=== PATIENT | female | born 1955 | race Caucasian/White ===

== ENCOUNTER 2024-10-18 20:00 | Inpatient (IN) | payer MEDICARE, OTHER ==
[~2024-10-18] VITALS: Ht 167.6 cm; Wt 105.2 kg
[2024-10-18] MEDS ORDERED: HALOPERIDOL LACTATE 5 MG/1 ML VIAL ONE (20:21)
[2024-10-18] MEDS ORDERED: ONDANSETRON ODT 4 MG TAB.RAPDIS ONE (20:21)
[2024-10-18] MEDS ORDERED: HYDROCODONE/APAP 10-325 MG TABLET ONE (20:22)
[2024-10-18] MEDS: ONDANSETRON ODT 4 MG TAB.RAPDIS SL ONE (20:30)
[2024-10-18] MEDS: HYDROCODONE/APAP 10-325 MG TABLET PO ONE (20:30)
[2024-10-18] MEDS: HALOPERIDOL LACTATE 5 MG/1 ML VIAL IM ONE (20:30)
[2024-10-18 20:51] LABS: PLATELET COUNT (AUTO) 171 K/uL (179-408); RED BLOOD CELL COUNT(AUTO) 3.62 MIL/uL (3.63-4.92); RED CELL DISTRIBUTION WIDTH 17.9 % (12.3-17.7); WHITE BLOOD COUNT (AUTO) 5.0 K/uL (3.8-11.8)
[2024-10-18 20:59] LABS: CREATININE 0.7 mg/dL (0.6-1.3); SODIUM SERUM 140 mmol/L (136-145); UREA NITROGEN, BLOOD 25 mg/dL (7-18)
[2024-10-18 21:04] LABS: ETHANOL < 3 MG/DL (0-10)
[2024-10-18 21:05] LABS: ASPARTATE AMINOTRANSFERASE 85 U/L (15-37); TOTAL PROTEIN, SERUM 8.6 g/dL (6.4-8.2)
[2024-10-18 22:16] LABS: *BILIRUBIN,URIN NEGATIVE (NEGATIVE); *CLARITY,URINE CLEAR (CLEAR); *COLOR,URINE YELLOW (YELLOW); *KETONES,URINE TRACE (NEGATIVE); *PROTEIN,URINE NEGATIVE (NEGATIVE); *UROBILINOGEN,URINE 0.2 E.U./dl (NORMAL); LEUKOCYTE ESTERASE ,URINE NEGATIVE (NEGATIVE); NITRITE, URINE NEGATIVE (NEGATIVE); UGLUCOSE NEGATIVE (NEGATIVE)
[2024-10-18 22:17] LABS: *BLOOD, URINE TRACE (NEGATIVE)
[2024-10-18 22:25] LABS: *AMPHETAMINE, URINE NEGATIVE (NEGATIVE); *BARBITURATE, URINE NEGATIVE (NEGATIVE); *BENZODIAZEPINE, URINE POSITIVE (NEGATIVE); *CANNABINOID, URINE NEGATIVE (NEGATIVE); *COCCAINE, URINE NEGATIVE (NEGATIVE); *OPIATE, URINE POSITIVE (NEGATIVE); *PHENCYCLIDINE SCREEN,URINE NEGATIVE (NEGATIVE); FENTANYL, URINE NEGATIVE (NEGATIVE)
[2024-10-18 22:43] LABS: SQUAMOUS EPITHELIAL CELL,UR FEW /HPF (NONE SEEN)
[2024-10-19] MEDS ORDERED: PROG100C8 PO (00:06)
[2024-10-19] MEDS ORDERED: PRAZ2CAP2 PO (00:06)
[2024-10-19] MEDS ORDERED: LOSA50TA39 PO (00:06)
[2024-10-19] MEDS ORDERED: DEUT12TA PO (00:06)
[2024-10-19] MEDS ORDERED: ONDA-104 PO (00:06)
[2024-10-19] MEDS ORDERED: DIAZ2TAB3 PO (00:06)
[2024-10-19] MEDS ORDERED: BUSP5TAB3 PO (00:06)
[2024-10-19] MEDS ORDERED: OMEP20CA15 PO (00:06)
[2024-10-19] MEDS ORDERED: BUDE10.26 INH (00:06)
[2024-10-19] MEDS ORDERED: LEVO25TA9 PO (00:06)
[2024-10-19] MEDS ORDERED: SERT-438 PO (00:06)
[2024-10-19] MEDS ORDERED: FURO20TA4 PO (00:06)
[2024-10-19] MEDS ORDERED: OXYC10TA49 PO (00:06)
[2024-10-19] MEDS ORDERED: MELA5TAB PO (00:09)
[2024-10-19] MEDS ORDERED: ASPI81TA31 PO (00:09)
[2024-10-19] MEDS ORDERED: MAGNESIUM HYDROXIDE 30 ML LIQUID UDC PO PRN ×2 (00:15→13:30)
[2024-10-19] MEDS ORDERED: QUETIAPINE FUMARATE 100 MG TABLET PO PRN (00:15)
[2024-10-19] MEDS ORDERED: MAG HYDROX/AL HYDROX/SIMETH 30 ML LIQUID UDC PO PRN (00:15)
[2024-10-19] MEDS ORDERED: ZOLPIDEM 5 MG TABLET PO PRN (00:15)
[2024-10-19] MEDS: BLOOD SUGAR DIAGNOSTIC 1 EACH STRIP VI ONE (00:35)
[2024-10-19] MEDS: REMEDY ESSENTIAL ZINC PASTE 113 GM TOP PRN (05:35)
[2024-10-19 08:33] VITALS: BP 129/46; TEMP 98; O2SAT 96
[2024-10-19] MEDS ORDERED: GUAI100S69 PO (08:56)
[2024-10-19] MEDS ORDERED: MAGN400O6 PO (08:56)
[2024-10-19] MEDS ORDERED: MINE133E RC (08:56)
[2024-10-19] MEDS ORDERED: VITA1TAB37 PO (08:56)
[2024-10-19] MEDS ORDERED: CYAN100096 PO (08:56)
[2024-10-19] MEDS ORDERED: POTA-10 PO (08:56)
[2024-10-19] MEDS ORDERED: ACET-2154 PO (08:56)
[2024-10-19] MEDS: ACETAMINOPHEN 325 MG TABLET PO PRN (08:56)
[2024-10-19] MEDS: QUETIAPINE FUMARATE 25 MG TABLET PO PRN ×2 (08:56→13:17)
[2024-10-19] MEDS ORDERED: AUSTEDO 24 MG PO (08:56)
[2024-10-19] MEDS ORDERED: LIDO30AD10 TD (08:56)
[2024-10-19] MEDS ORDERED: DOCU250C15 PO (08:56)
[2024-10-19] MEDS ORDERED: BISA10SU61 RC (08:56)
[2024-10-19] MEDS ORDERED: CRAN500T3 PO (08:56)
[2024-10-19] MEDS ORDERED: CHOL-35 PO (08:56)
[2024-10-19] MEDS ORDERED: QUETIAPINE FUMARATE 25 MG TABLET PO PRN (09:00)
[2024-10-19] MEDS ORDERED: BISACODYL 10 MG SUPP.RECT RC PRN (13:30)
[2024-10-19] MEDS ORDERED: ACETAMINOPHEN 325 MG TABLET-SA PATIENTS-PAIN ONLY PO PRN (13:30)
[2024-10-19] MEDS ORDERED: MINERAL OIL FLEET ENEMA 133 ML BOTTLE RC PRN (13:30)
[2024-10-19] MEDS ORDERED: GUAIFENESIN SUGAR FREE 100 MG/5 ML UDC PO PRN (13:30)
[2024-10-19] MEDS ORDERED: ONDANSETRON HCL 4 MG TABLET PO PRN (13:30)
[2024-10-19] MEDS: OXYCODONE HCL 5 MG TABLET PO PRN (13:35)
[2024-10-19 15:29] VITALS: BP 118/51; TEMP 98; O2SAT 94
[2024-10-19] MEDS ORDERED: Medication Not On Formulary EA (Prazosin Hcl 1 CAP) PO SCH (17:00)
[2024-10-19] MEDS: OXCARBAZEPINE 150 MG TABLET PO SCH (17:06)
[2024-10-19] MEDS: FUROSEMIDE 20 MG TABLET PO SCH (17:06)
[2024-10-19] MEDS: PRAZOSIN HCL 1 MG CAPSULE PO SCH (17:07)
[2024-10-19] MEDS: PANTOPRAZOLE SODIUM 40 MG TABLET.DR PO SCH (17:07)
[2024-10-19 19:53] VITALS: BP 136/54; TEMP 97.9; O2SAT 95
[2024-10-19] MEDS: QUETIAPINE FUMARATE 25 MG TABLET PO SCH (20:51)
[2024-10-19] MEDS: TRAZODONE 50 MG TABLET PO SCH (20:51)
[2024-10-20] MEDS: LEVOTHYROXINE SODIUM 25 MCG TABLET PO SCH (06:52)
[2024-10-20 07:46] LABS: ASPARTATE AMINOTRANSFERASE 70.0 U/L (15-37); GLUCOSE FASTING 89.0 mg/dL (70-115); TOTAL PROTEIN, SERUM 6.9 g/dL (6.4-8.2)
[2024-10-20 08:24] VITALS: BP 109/66; TEMP 98; O2SAT 98
[2024-10-20] MEDS ORDERED: AUSTEDO 24 MG PO SCH (09:00)
[2024-10-20] MEDS ORDERED: Medication Not On Formulary EA (Cranberry Extract (Cranberry) 500 MG) PO SCH (09:00)
[2024-10-20] MEDS ORDERED: PROGESTERONE MICRONIZED PO SCH (09:00)
[2024-10-20] MEDS ORDERED: Medication Not On Formulary EA (Potassium Chloride (K-Dur) 10 MEQ) PO SCH (09:00)
[2024-10-20] MEDS ORDERED: VITAMIN B COMP W C PO SCH (09:00)
[2024-10-20] MEDS: CYANOCOBALAMIN 1,000 MCG TABLET PO SCH (09:31)
[2024-10-20] MEDS: LOSARTAN POTASSIUM 50 MG TABLET PO SCH (09:31)
[2024-10-20] MEDS: CHOLECALCIFEROL 1,000 UNIT TABLET PO SCH (09:32)
[2024-10-20] MEDS: ASPIRIN 81 MG TAB.CHEW PO SCH (09:32)
[2024-10-20] MEDS: LIDOCAINE 5% PATCH TD SCH (09:32)
[2024-10-20] MEDS: DOCUSATE SODIUM 250 MG CAPSULE PO SCH (09:32)
[2024-10-20] MEDS: VITAMIN B COMPLEX 1 TABLET PO SCH (09:32)
[2024-10-20] MEDS: POTASSIUM CHLORIDE 10 MEQ TAB.PRT.SR PO SCH (09:33)
[2024-10-20 16:40] VITALS: BP 102/45; TEMP 97.9; O2SAT 95
[2024-10-20 20:00] VITALS: BP 125/41; TEMP 98.1; O2SAT 95
[2024-10-21 08:49] VITALS: BP 105/54; TEMP 98.4; O2SAT 99
[2024-10-21 17:19] VITALS: BP 143/62; TEMP 98.5; O2SAT 99
[2024-10-21 19:45] VITALS: BP 135/56; TEMP 98.2; O2SAT 94
[2024-10-21] MEDS: TRAZODONE 50 MG TABLET PO SCH (20:41)
[2024-10-22 08:37] VITALS: BP 157/72; TEMP 98; O2SAT 97
[2024-10-22 16:31] VITALS: BP 140/68; TEMP 98; O2SAT 97
[2024-10-22 20:01] VITALS: BP 142/66; TEMP 98.1; O2SAT 96
[2024-10-23] MEDS: ZOLPIDEM 5 MG TABLET PO PRN (01:40)
[2024-10-23 08:56] VITALS: BP 105/41; TEMP 98.6; O2SAT 95
[2024-10-23 16:17] VITALS: BP 118/50; TEMP 98.2; O2SAT 97
[2024-10-23 20:02] VITALS: BP 116/52; TEMP 98.1; O2SAT 96
[2024-10-23] MEDS: QUETIAPINE FUMARATE 25 MG TABLET PO SCH (21:54)
[2024-10-23] MEDS: TRAZODONE 50 MG TABLET PO SCH (21:54)
[2024-10-24 07:30] VITALS: BP 115/62; TEMP 98; O2SAT 98
[2024-10-24] MEDS: OXCARBAZEPINE 150 MG TABLET PO SCH (13:16)
[2024-10-24 15:49] VITALS: BP 98/46; TEMP 98; O2SAT 96
[2024-10-24 19:43] VITALS: BP 126/66; TEMP 98.1; O2SAT 96
[2024-10-25 09:15] VITALS: BP 98/58; TEMP 98; O2SAT 96
[2024-10-25 15:48] VITALS: BP 114/49; TEMP 98; O2SAT 96
[2024-10-25] MEDS: QUETIAPINE FUMARATE 25 MG TABLET PO SCH (20:35)
[2024-10-26 09:11] VITALS: BP 104/54; TEMP 98.4; O2SAT 96
[2024-10-26 15:22] VITALS: BP 115/51; TEMP 98.4; O2SAT 96
[2024-10-26 20:00] VITALS: BP 116/55; TEMP 97.7; O2SAT 96
[2024-10-27 08:28] VITALS: BP 146/85; TEMP 98.4; O2SAT 96
[2024-10-27 16:38] VITALS: BP 119/49; TEMP 97.7; O2SAT 96
[2024-10-27 20:00] VITALS: BP 104/46; TEMP 97.8; O2SAT 95
[2024-10-28 08:57] VITALS: BP 131/57; TEMP 98.3; O2SAT 97
[2024-10-28] MEDS: QUETIAPINE FUMARATE 25 MG TABLET PO SCH ×2 (10:56→20:35)
[2024-10-28 16:46] VITALS: BP 138/70; TEMP 97.8; O2SAT 95
[2024-10-28 20:27] VITALS: BP 136/66; TEMP 98.1; O2SAT 96
[2024-10-29] MEDS: ENSURE ENLIVE (VAN) 240 ML LIQUID PO SCH (08:46)
[2024-10-29 08:58] VITALS: BP 138/71; TEMP 98.3; O2SAT 97
[2024-10-29] MEDS ORDERED: OXCARBAZEPINE 150 MG TABLET PO SCH (14:00)
[2024-10-29] MEDS: OXCARBAZEPINE 300 MG TABLET PO SCH (15:46)
[2024-10-29 16:33] VITALS: BP 120/49; TEMP 97.8; O2SAT 95
[2024-10-30 08:27] VITALS: BP 132/58; TEMP 97.8
[2024-10-30 16:54] VITALS: BP 136/75; TEMP 97.7; O2SAT 97
[2024-10-30 20:00] VITALS: TEMP 98.2; O2SAT 96
[2024-10-30] MEDS: CLONAZEPAM 0.5 MG TABLET PO SCH (20:38)
[2024-10-31 08:03] VITALS: BP 134/68; TEMP 98; O2SAT 99
[2024-10-31 15:08] VITALS: BP 100/56; TEMP 98; O2SAT 99
[2024-10-31] MEDS: QUETIAPINE FUMARATE 25 MG TABLET PO SCH (15:20)
[2024-10-31 17:00] VITALS: BP 100/56
[2024-10-31] MEDS ORDERED: QUETIAPINE FUMARATE 100 MG TABLET PO SCH (21:00)
[2024-10-31] MEDS ORDERED: QUETIAPINE FUMARATE 25 MG TABLET PO SCH (21:00)
== END 2024-10-31 19:57 | DRG 885 ==
LOC: ER 20:06 → GPS 23:44
PROVIDERS: ADMIT Psychiatry & Neurology Psychiatry; ATTEND Student in an Organized Health Care Education/Training Program
DX: F39 Unspecified mood [affective] disorder (principal); E44.0 Moderate protein-calorie malnutrition; F03.911 Unspecified dementia, unspecified severity, with agitation; F03.92 Unspecified dementia, unspecified severity, with psychotic disturbance; Z74.01 Bed confinement status; K21.9 Gastro-esophageal reflux disease without esophagitis; R41.841 Cognitive communication deficit; G89.4 Chronic pain syndrome; G47.33 Obstructive sleep apnea (adult) (pediatric); E86.0 Dehydration; R74.01 Elevation of levels of liver transaminase levels; D69.6 Thrombocytopenia, unspecified; E66.9 Obesity, unspecified; Z68.37 Body mass index [BMI] 37.0-37.9, adult; Z79.899 Other long term (current) drug therapy; G47.00 Insomnia, unspecified; F31.9 Bipolar disorder, unspecified
CPT/HCPCS: 36415; 84443; 85025; A4606; A4663; A6209; G0480; J1630; Q0162; Q0163